=== PATIENT | female | born 1955 | race Caucasian/White ===

== ENCOUNTER 2017-01-28 09:48 | Emergency (ER) | payer BC ==
[~2017-01-28 09:48] MED LIST: ACETAMINOPHEN325 MG PO; ALDACTAZIDE 251 EACH PO; AMLODIPINE-BEN1 EAC5 PO; AROMASIN25 MG PO; ASPIR 8181 MG PO; CLARITIN10 MG PO; CO Q-1010 MG PO; COMBIVENT RESPIM4 GM IH; CYMBALTA60 MG PO; FLUTICASONE PRO16 GM NS; K-DUR20 MEQ PO; LASIX20 MG PO; LEVAQUIN750 MG PO; METOPROLOL TART25 MG PO; PERCOCET 5-3251 EACH PO; PHENERGAN25 M1 PO; ROXICODONE15 MG PO; TRAZODONE HCL50 MG PO; ZOFRAN4 MG PO
== END 2017-01-28 22:35 | disposition short-term general hospital (02) ==
LOC: ER 09:48
DX: I82.210 Acute embolism and thrombosis of superior vena cava (principal); J90 Pleural effusion, not elsewhere classified; I10 Essential (primary) hypertension; E78.5 Hyperlipidemia, unspecified; Z79.899 Other long term (current) drug therapy
CPT/HCPCS: 36415; 96360; 96361; Q9967

== ENCOUNTER 2017-02-13 10:09 | Emergency (ER) | payer BC | END 2017-02-13 18:30 | disposition short-term general hospital (02) | LOC: ER 10:09 | DX: J90 Pleural effusion, not elsewhere classified (principal); I87.1 Compression of vein; I10 Essential (primary) hypertension; E78.5 Hyperlipidemia, unspecified; Z79.899 Other long term (current) drug therapy | CPT/HCPCS: 36415; Q9967 ==

== ENCOUNTER → 2017-04-04 | Day surgery (SDC) | payer BC | END | disposition home or self-care (01) | LOC: SDC 07:50 | DX: K21.0 Gastro-esophageal reflux disease with esophagitis (principal); K29.70 Gastritis, unspecified, without bleeding; K44.9 Diaphragmatic hernia without obstruction or gangrene | CPT/HCPCS: J2704 ==